=== PATIENT | male | born 1975 ===

== ENCOUNTER 2017-08-22 19:51 | Emergency (ER) | payer OTHER ==
[~2017-08-22] VITALS: Ht 172.7 cm; Wt 95.3 kg
== END 2017-08-22 22:24 | disposition home or self-care (01) ==
LOC: ER 19:51
DX: R20.0 Anesthesia of skin (principal); M62.830 Muscle spasm of back

== ENCOUNTER → 2017-09-04 | Emergency (ER) | payer BC ==
[~2017-09-04] VITALS: Ht 172.7 cm; Wt 90.7 kg
== END | disposition home or self-care (01) ==
LOC: ER 16:58
DX: B34.9 Viral infection, unspecified (principal); E86.0 Dehydration

== ENCOUNTER → 2017-10-04 | Emergency (ER) | payer OTHER ==
[~2017-10-04] VITALS: Ht 172.7 cm; Wt 90.7 kg
== END | disposition left against medical advice (07) ==
LOC: ER 18:34
DX: Z53.20 Procedure and treatment not carried out because of patient's decision for unspecified reasons (principal)